=== PATIENT | female | born 1995 | race Caucasian/White ===

== ENCOUNTER 2016-06-25 16:05 | Emergency (ER) | payer OTHER ==
[2016-06-25 16:30] VITALS: TEMP 97.7
--- NOTE | 2016-06-25 16:57 | PD ---
HPI Chief Complaint Audible decelerations Date Seen: Jun 25, 2016 Travel History International Travel<30 Days: No Contact w/Intl Traveler<30Days: No History of Present Illness HPI Patient is a 20-year-old presents to the [facility] ED from [facility] with a chief complaint of audible decelerations on Doppler. Patient states that today was her first day of going to clinic because she found out she was 3 weeks ago on a home test. She denies any complaints today except reflux. No loss of fluid, no vaginal bleeding, and she endorses positive movements. [id number] ultrasound was performed in the ED by Dr. Schwarz with a gestational age of 28/4 weeks, due date of September 13 based on measurements. Stuart male fetus. labs were drawn in clinic today. Para: 1 : 2 Miscarriage: 0 : 0 History Past Medical History Narrative Medical Remote history of asthma. Patient stopped using inhaler 3 years ago. Obstetric History Obstetric History First was a vaginal delivery at 36 weeks. Past Surgical History Surgical History: No Previous Surgery Family History Narrative Family History Father has asthma. No family history of diabetes or hypertension. Social History Alcohol Use: No Tobacco Use: No Substance Abuse: No Allergies-Medications (Allergen,Severity, Reaction): Coded Allergies: No Known Allergies (Unverified , 06/25/16) Review of Systems General / Constitutional: No: Fever, Chills Eyes: No: Blurred Vision, Visual changes HENT: No: Headaches, Lightheadedness Cardiovascular: No: Chest Pain or Discomfort Respiratory: No: Short of Breath Gastrointestinal: No: Nausea, Vomiting, Diarrhea, Abdominal Pain Genitourinary: No: Dysuria Musculoskeletal: No: Weakness Skin: No Rash Neurologic: No: Weakness Physical Exam Narrative GENERAL: Well-nourished, well-developed patient. SKIN: Warm and dry. HEAD: Normocephalic and atraumatic. EYES: No scleral icterus. No injection or drainage. ENT: No nasal drainage noted. Mucous membranes pink. Airway patent. NECK: Supple, trachea midline. No JVD. CARDIOVASCULAR: Regular rate and rhythm without murmurs, gallops, or rubs. RESPIRATORY: Breath sounds equal bilaterally. No accessory muscle use. ABDOMEN/GI: Abdomen soft, non-tender, bowel sounds present, no rebound, no guarding Gravid to 28 weeks size GENITOURINARY: External Genitalia: intact and normal in appearance Cervix: [-] Dilatation: [-] Effacement: [-] Station: [-] Presentation: [-] Membranes: Intact Uterine Contractions: None FHT's: Category: 1 Baseline: 145 Reactive: Up to 155 Variability: Moderate Decels: None EXTREMITIES: No cyanosis or edema. BACK: Nontender without obvious deformity. No CVA tenderness. NEUROLOGICAL: Awake and alert. Motor and sensory grossly within normal limits. Five out of 5 muscle strength in all muscle groups. Normal speech. Data Data Vital Signs Reviewed: Yes Orders Ob Poc Ultrasound (06/25/16 ) Vital Signs (Adult) .ON ADMISSION (06/25/16 16:56) ^ Labor Status (06/25/16 16:56) ^ Non Stress Test (06/25/16 16:56) ^ Hydration (06/25/16 16:56) MDM Medical Record Reviewed: No Interpretation(s) 20-year-old at 28/4 weeks gestation based on point of care ultrasound performed today in the OB ED Plan Intrauterine stuart - tracing category 1, reassuring - monitoring for a minimum of 20 minutes -No contractions on monitor -Continue routine care -Follow up with Mansi Hennessy at [facility] Diagnosis Diagnosis: Primary Impression: with 28 completed weeks gestation Disposition: 01 DISCHARGE HOME Condition: Stable Eko,Kendra Kim MD R1 Jun 25, 2016 16:57
--- NOTE | 2016-06-25 17:17 | PD ---
History of Present Illness Date Seen: Jun 25, 2016 History of Present Illness The patient is 20-year-old white female at unknown gestational age due to no care. Patient was seen in [facility]nessy's clinic today they are inaudible decel while listening to FHTs and then they sent the patient to OB ED. The patient has no complaints or problems no pain leakage bleeding. Baby is active. She is just unsure of how far preg she is her periods are very irregular. Her on OB ED her NST is reactive with very good variability. No decelerations seen. Ultrasound done to bedside which shows a male fetus in a vertex presentation estimated weight 2 lbs. 10 oz. positive cardiac motion noted, normal anatomy scan done, normal amniotic fluid volume seen, by measuring parameters baby is 28 weeks and 4 days with an EDC of 09/13/16, there is a posterior placenta with a three-vessel cord seen. Patient was watched for 30 minutes and noted to have no decelerations that she could be discharged home at that time to follow-up with Mansi Hennessy. Maycol Schwarz II, MD Jun 25, 2016 17:17
== END 2016-06-25 17:56 | disposition home or self-care (01) ==
LOC: HOBED 16:05
DX: O76 Abnormality in fetal heart rate and rhythm complicating labor and delivery (principal); Z3A.28 28 weeks gestation of pregnancy
CPT/HCPCS: 76815